=== PATIENT | female | born 2000 | race Caucasian/White ===

== ENCOUNTER 2021-03-03 00:50 | Emergency (ER) | payer OTHER ==
[~2021-03-03] VITALS: Ht 165.1 cm; Wt 77.3 kg
[2021-03-03] MEDS ORDERED: CRUTCHES MC (02:16)
[2021-03-03 02:35] VITALS: BP 124/71; PULSE 83; TEMP 98.4
== END 2021-03-03 02:35 | disposition home or self-care (01) ==
LOC: COL.ER 00:50
DX: M25.562 Pain in left knee (principal); W01.0XXA Fall on same level from slipping, tripping and stumbling without subsequent striking against object, initial encounter
CPT/HCPCS: L1830; L1846

== ENCOUNTER 2023-09-15 15:21 | Emergency (ER) | payer OTHER ==
[~2023-09-15] VITALS: Ht 154.9 cm; Wt 96.8 kg
[~2023-09-15 15:21] MED LIST: CRUTCHES MC; LEVSIN 0.10.125 MG/T PO; NORCO 325 MG-51 TAB PO; TYLENOL W/COD1 UDTAB PO
[2023-09-15 15:29] VITALS: TEMP 97
[2023-09-15] MEDS ORDERED: fentaNYL 50 MCG/ML 2 ML VIAL IV ONE ×2 (15:45→16:45)
[2023-09-15] MEDS ORDERED: NS 1,000 ML IV ONE (15:45)
[2023-09-15 16:11] LABS: BASO # 0.1 K/mm3 (0.0-0.2); BASO % 0.4 % (0.0-2.0); EOS % 0.2 % (0.0-4.0); GRAN # 12.3 K/mm3 (1.4-6.5); GRAN % 76.9 % (42.2-75.2); HEMATOCRIT 42.2 % (37.0-47.0); HEMOGLOBIN 14.4 g/dl (12.5-16.0); LYMPH # 2.3 K/mm3 (1.2-3.4); LYMPH % 14.1 % (20.0-51.0); MEAN CELL VOLUME 90 fl (80.0-100.0); MEAN CORPUSCULAR HEMOGLOBIN 31 pg (27-31); MEAN CORPUSCULAR HGB CONC 34 g/dl (33.0-37.0); MEAN PLATELET VOLUME 8.7 fl (7.4-10.4); MONO # 1.2 K/mm3 (0.1-0.6); MONO % 7.5 % (1.7-9.3); PLATELET COUNT 331 K/mm3 (130-400); RED BLOOD COUNT 4.69 M/mm3 (4.10-5.30); REDCELL DISTRIBUTION WIDTH-CV 12.3 % (11.5-14.5)
[2023-09-15 16:25] LABS: ALBUMIN 4.6 g/dL (3.5-5.0); BILIRUBIN,TOTAL 0.7 mg/dL (0.2-1.2); CALCIUM 9.8 mg/dL (8.4-10.2); CREATININE, serum 1.04 mg/dL (0.57-1.11); POTASSIUM 3.6 mEq/L (3.5-4.5); TOTAL PROTEIN 7.7 g/dl (6.2-8.1)
[2023-09-15] MEDS ORDERED: Iohexol 300 - 100 ML VIAL IV ONE (16:37)
[2023-09-15] MEDS ORDERED: NS 100 ML IV SCH (16:37)
[2023-09-15] MEDS ORDERED: PERCOCET 325 MG1 TA2 PO (17:15)
[2023-09-15] MEDS ORDERED: Ketorolac 30 MG/ML VIAL IV ONE (17:15)
[2023-09-15] MEDS ORDERED: Home oxyCODONE/Acetaminophen 5/325 MG #4 TAB/PACK PO ONE (17:15)
[2023-09-15 17:52] VITALS: BP 132/74; PULSE 84
== END 2023-09-15 17:52 | disposition home or self-care (01) ==
LOC: COL.ER 15:21
PROVIDERS: Physician Assistant
DX: S32.030A Wedge compression fracture of third lumbar vertebra, initial encounter for closed fracture (principal); W17.89XA Other fall from one level to another, initial encounter; Y93.89 Activity, other specified
CPT/HCPCS: J1885; J3010; J7030; Q9967